=== PATIENT | male | born 1965 | race Asian ===

== ENCOUNTER 2016-07-02 12:40 | Day surgery (SDC) | payer BC ==
[~2016-07-02] VITALS: Ht 170.2 cm; Wt 58.6 kg
[2016-07-02 14:05] VITALS: Ht 170.2 cm; Wt 58.6 kg
[2016-07-02] MEDS ORDERED: VITAMIN D (14:32)
[2016-07-02] MEDS ORDERED: FISH OIL (14:32)
[2016-07-02 14:45] VITALS: BP 125/73; PULSE 65; RESP 18
[2016-07-02 15:24] VITALS: BP 115/72; PULSE 59; RESP 18
[2016-07-02 16:34] VITALS: BP 136/75; RESP 20
--- NOTE | 2016-07-02 17:20 | GILP ---
DATE OF PROCEDURE: 07/02/2016 PROCEDURE: Colonoscopy with polyp ablation. BRIEF HISTORY AND INDICATION: The patient is being evaluated for colorectal cancer screening. PREMEDICATION: Monitored anesthesia care by anesthesiologist. SURGEON: Won Cabrales MD INSTRUMENT USED: Olympus colonoscope. PREPARATION: Fair. TECHNIQUE: After informed consent, with the patient/relatives understanding the procedure, its indic ations potential risks and complications, including but not limited to: allergic reaction, bleeding, perforation, infection, missed lesions and after all pertinent questions were answered to the patie nt's satisfaction, the patient/relatives signed the witnessed informed consent. Following this, premedication was administered slowly IV push by under careful cardiovascular and re spiratory monitoring with pulse oximetry, automatic blood pressure and bus driver/monitor. Once the sedativ e effect was achieved, the patient was placed in the left lateral decubitus position, digital rectal examination was performed. The colonoscope was then introduced and advanced under visual control th roughout all segments of the colon including: the rectum, sigmoid, descending colon, splenic flexure , transverse colon, hepatic flexure, ascending colon and finally reaching the cecum which was clearl y identified by transillumination, finger indentation and the ileocecal valve. Careful examination o f the mucosa of the lower gastrointestinal tract both on insertion as well as withdrawal of the inst rument disclosed the following findings: Rectal Examination: No evidence of perirectal disease, no masses. Colonic Mucosa: The colonic mucosa is remarkable for 4 mm polyp in the rectum which was completely ablated with biopsy forceps. The remainder of the colonic mucosa unremarkable. The ileocecal valve was clearly identified. Instrument was withdrawn reexamining the mucosa in detail. No additional abnormalities are noted with the exception of moderate sized internal hemorrhoids. The instrument w as then withdrawn, the patient tolerated the procedure well and was transferred out of the [facility]oscopy Suite awake and in good condition to continue recovery under observation. IMPRESSION: 1. A 4 mm polyp in the rectum ablated. 2. Moderate size internal hemorrhoids. PLAN: Pathology will be reviewed as soon as available and hemoccult stool testing is recommended: Surveillance colonoscopy in 5 years is recommended as well. Dictated By: WON CABRALES MS/NTS Conf#: [id number] DID#: [id number] CC: WON CABRALES;*EndCC*
== END 2016-07-02 16:30 | disposition home or self-care (01) ==
LOC: GIL 12:40
PROVIDERS: ATTEND Internal Medicine Gastroenterology
DX: Z12.11 Encounter for screening for malignant neoplasm of colon (principal); K62.1 Rectal polyp; K64.8 Other hemorrhoids
CPT/HCPCS: 45380; 88305; Z7610